=== PATIENT | male | born 1960 | race African-American/Black ===

== ENCOUNTER 2016-09-12 04:37 | Emergency (ER) | payer OTHER ==
[~2016-09-12] VITALS: Ht 170.2 cm; Wt 66.7 kg
[~2016-09-12 04:37] MED LIST: LEVE1000 PO; METO25TA PO; MULT1SGL58 PO; PHEN-1438 PO
[2016-09-12 04:49] VITALS: BP 105/65
--- NOTE | 2016-09-12 04:59 | NUR ---
Patient ambulated to bed 03.
--- NOTE | 2016-09-12 05:00 | NUR ---
PATIENT PRESENTS TO ED WITH C/O OF DIZZINESS AND BILAT WEAK LEGS X 1 DAY . PT STATES HE DID NOT FALL OR LOSE CONSCIOUSNESS .PT DENIES N/V/D;PT STATES HE HAS A HX OF STROKE 20 YEARS AGO, A SMALL STROKE 2010, AND A SEIZURE A MONTH A AGO WHILE AT HOME. PT STATES HE TAKES DILANTIN AND PHENOBARITAL FOR SEIZURE.PT SKIN IS PINK/WARM/DRY; AAOX4 WITH EVEN AND STEADY GAIT; LUNGS CLEAR BL; HR EVEN AND REGULAR; PT DENIES ANY FEVER, CP, SOB, OR COUGH AT THIS TIME; PATIENT STATES PAIN OF 9/10 AT THIS TIME; VSS; PATIENT POSITIONED FOR COMFORT; HOB ELEVATED; BEDRAILS UP X2; BED DOWN. ER MD MADE AWARE OF PT STATUS.
--- NOTE | 2016-09-12 05:14 | NUR ---
Dr. Quintana evaluating patient at bedside.
[2016-09-12] MEDS ORDERED: HYDROcodone/APAP 5/325 MG 1 TAB TAB PO ONE (05:20)
[2016-09-12] MEDS ORDERED: KETOROLAC 30 MG/ML VIAL IM ONE (05:20)
--- NOTE | 2016-09-12 05:49 | NUR ---
BROUGHT BLOOD TO LAB
[2016-09-12 06:11] LABS: ANION GAP 14.1 (8-16); CALCIUM 8.1 mg/dL (8.5-10.1); CARBON DIOXIDE 24.5 mmol/L (21-32); POTASSIUM 3.6 mmol/L (3.5-5.1)
[2016-09-12 06:43] VITALS: BP 111/69
--- NOTE | 2016-09-12 06:43 | NUR ---
Patient discharged with v/s stable. Written and verbal after care instructions given and explained. Patient alert, oriented and verbalized understanding of instructions. Ambulatory with steady gait. All questions addressed prior to discharge. ID band removed. Patient advised to follow up with PMD. Rx of NAPROSYN 500MG given. Patient educated on indication of medication including possible reaction and side effects. Opportunity to ask questions provided and answered.
== END 2016-09-12 06:43 | disposition home or self-care (01) ==
LOC: MED 04:37
PROC: 3E033GC Introduction of Other Therapeutic Substance into Peripheral Vein, Percutaneous Approach (ICD-10-PCS; principal; 2016-09-12)
DX: M79.1 Myalgia (principal); I10 Essential (primary) hypertension; R56.9 Unspecified convulsions; J44.9 Chronic obstructive pulmonary disease, unspecified; Z86.73 Personal history of transient ischemic attack (TIA), and cerebral infarction without residual deficits
CPT/HCPCS: 36415; 80048; 82550; 96372; 99284; J1885

== ENCOUNTER 2017-01-10 01:48 | Emergency (ER) | payer OTHER ==
[~2017-01-10] VITALS: Ht 167.6 cm; Wt 68.0 kg
[2017-01-10 01:57] VITALS: BP 111/72
--- NOTE | 2017-01-10 03:15 | NUR ---
PATIENT TO ER BED 5
--- NOTE | 2017-01-10 03:30 | NUR ---
Patient being evaluated by physician at bedside.
--- NOTE | 2017-01-10 04:15 | NUR ---
56Y/M PT. PRESENTS TO ED WITH C/O LT. FLANK PAIN X 5 DAYS. HX. STROKE, SEIZURE. AAO X4, AMBULATORY WITH UNSTEADY GAIT. LT. SIDE MILD WEAKNESS. RESPIRATION ROOM AIR, EVEN AND UNLABORED. SKIN WARM AND DRY. C/O LT. FLANK PAIN 510. VSS, ER MADE AWARE OF PT. STATUS.
[2017-01-10 04:57] LABS: HEMATOCRIT 37.5 % (36-52); HEMOGLOBIN 12.2 g/dL (12.0-18.0); MEAN CORPUSCULAR HEMOGLOBIN 33 pg (27-31); MEAN CORPUSCULAR HGB CONC 33 g/dL (33-37); MEAN CORPUSCULAR VOLUME 100 fL (80-94); PLATELET COUNT (AUTO) 187 K/uL (140-450); RED BLOOD CELL COUNT(AUTO) 3.74 MIL/uL (4.20-6.10); RED CELL DISTRIBUTION WIDTH 13.4 % (11.6-13.7); WHITE BLOOD COUNT (AUTO) 3.5 K/uL (4.8-10.8)
[2017-01-10 05:13] LABS: EOSINOPHILS % (MANUAL) 3 % (0-4); LYMPHOCYTES % (MANUAL) 40 % (20-46); MONOCYTES % (MANUAL) 6 % (5-12); NEUTROPHILS % (MANUAL) 51 (43-65)
[2017-01-10 05:17] LABS: ANION GAP 8.8 (8-16); CALCIUM 8.5 mg/dL (8.5-10.1); CARBON DIOXIDE 30.7 mmol/L (21-32); POTASSIUM 4.5 mmol/L (3.5-5.1)
[2017-01-10 05:22] LABS: ALBUMIN 3.7 g/dL (3.4-5.0); TOTAL BILIRUBIN 0.2 mg/dL (0.0-1.0); TOTAL PROTEIN, SERUM 7.9 g/dL (6.4-8.2)
[2017-01-10 06:09] LABS: APPEARANCE,URINE CLEAR (CLEAR); BILIRUBIN,URINE NEGATIVE (NEGATIVE); BLOOD, URINE NEGATIVE (NEGATIVE); COLOR,URINE YELLOW (YELLOW); LEUKOCYTE ESTERASE ,URINE NEGATIVE (NEGATIVE); NITRITE, URINE NEGATIVE (NEGATIVE); PROTEIN,URINE NEGATIVE (NEGATIVE); UGLUCOSE NEGATIVE (NEGATIVE); UROBILINOGEN,URINE 0.2 EU/dL (0.2 - 1)
[2017-01-10 06:12] VITALS: BP 100/70
--- NOTE | 2017-01-10 06:12 | NUR ---
Patient discharged with v/s stable. Written and verbal after care instructions given and explained. Patient alert, oriented and verbalized understanding of instructions. Ambulatory with to car. All questions addressed prior to discharge. ID band removed. Patient advised to follow up with PMD. Rx of CYCLOBENZAPRINE 10 MG, MOTRIN 800 MG given. Patient educated on indication of medication including possible reaction and side effects. Opportunity to ask questions provided and answered.
[2017-01-10 06:17] LABS: AMPHETAMINE, URINE NEG. ng/ml (NEG <=1000); BARBITURATE, URINE POS. ng/ml (NEG <=200); BENZODIAZEPINE, URINE NEG. ng/mL (NEG <=200); CANNABINOID, URINE NEG. ng/mL (NEG <=50); COCAINE, URINE NEG. ng/mL (NEG <=300); OPIATE, URINE NEG. ng/mL (NEG <=2000); PHENCYCLIDINE SCREEN,URINE NEG. ng/mL (NEG <=25)
== END 2017-01-10 06:12 | disposition home or self-care (01) ==
LOC: MED 01:48
DX: R10.9 Unspecified abdominal pain (principal); M62.838 Other muscle spasm; Z86.73 Personal history of transient ischemic attack (TIA), and cerebral infarction without residual deficits; I10 Essential (primary) hypertension; F17.200 Nicotine dependence, unspecified, uncomplicated
CPT/HCPCS: 36415; 70450; 80053; 80305; 81003; 82150; 83690; 84484; 85025; 93005; 99285

== ENCOUNTER 2017-02-17 22:37 | Emergency (ER) | payer OTHER ==
[~2017-02-17] VITALS: Ht 175.3 cm; Wt 65.8 kg
[2017-02-17 22:48] VITALS: BP 123/80
--- NOTE | 2017-02-17 23:12 | NUR ---
PT TAKEN TO BED 7
--- NOTE | 2017-02-17 23:31 | NUR ---
Dr. Porter evaluating patient at bedside.
[2017-02-17] MEDS ORDERED: KETOROLAC 30 MG/ML VIAL IVP ONE (23:45)
[2017-02-17] MEDS ORDERED: NACL 0.9% 1,000 ML IV ONE (23:45)
--- NOTE | 2017-02-17 23:48 | NUR ---
PT TAKEN TO CT
--- NOTE | 2017-02-18 00:02 | NUR ---
56Y/M PT. PRESENTS TO ED WITH C/O RT. PAIN AND NUMBNESS X 4 DAYS. PT. HX. STROKE. NO N/V/D NOR FEVER. AAO X4, AMBULATORY WITH W/C ASSISTED, GCS 15. RESPIRATIONS ROOM AIR, EVEN AND UNLABORED. SKIN WARM AND DRY. PAIN TO RT. SIDE 12/21. VSS, ER MADE AWARE OF PT. STATUS.
--- NOTE | 2017-02-18 00:06 | NUR ---
PT RETURN FROM CT
--- NOTE | 2017-02-18 00:08 | NUR ---
PHLEB AT BEDSIDE FOR LAB DRAWS
[2017-02-18 00:21] LABS: BASOPHILS # (AUTO) 0.2 K/uL (0.00-0.22); EOSINOPHILS # (AUTO) 0.2 K/uL (0-0.4); MEAN CORPUSCULAR HEMOGLOBIN 33 pg (27-31); NEUTROPHILS # (AUTO) 2.6 K/uL (1.8-7.7)
[2017-02-18 00:25] LABS: BASOPHILS % (AUTO) 3.5 % (0.0-2.0); EOSINOPHILS % (AUTO) 3.5 % (0.0-4.0); HEMATOCRIT 38.9 % (36-52); HEMOGLOBIN 13.2 g/dL (12.0-18.0); LYMPHOCYTES # (AUTO) 1.6 K/uL (2.0-11.5); LYMPHOCYTES % (AUTO) 31.3 % (20.5-51.1); MEAN CORPUSCULAR HGB CONC 34 g/dL (33-37); MEAN CORPUSCULAR VOLUME 99 fL (80-94); MONOCYTES # (AUTO) 0.5 K/uL (0.8-1.0); NEUTROPHILS % (AUTO) 51.7 % (42.2-75.2); PLATELET COUNT (AUTO) 212 K/uL (140-450); RED BLOOD CELL COUNT(AUTO) 3.94 MIL/uL (4.20-6.10); RED CELL DISTRIBUTION WIDTH 13.3 % (11.6-13.7); WHITE BLOOD COUNT (AUTO) 5.1 K/uL (4.8-10.8)
[2017-02-18 00:31] LABS: ANION GAP 15.1 (8-16); CARBON DIOXIDE 24.5 mmol/L (21-32); CREATININE 1.1 mg/dL (0.7-1.3); POTASSIUM 3.6 mmol/L (3.5-5.1)
[2017-02-18 00:37] LABS: ALBUMIN 3.9 g/dL (3.4-5.0); TOTAL BILIRUBIN 0.2 mg/dL (0.0-1.0)
[2017-02-18 00:42] LABS: PROTHROMBIN TIME 9.9 secs (10.8-13.4)
--- NOTE | 2017-02-18 01:15 | NUR ---
Patient discharged with v/s stable. Written and verbal after care instructions given and explained. Patient alert, oriented and verbalized understanding of instructions. Ambulatory with steady gait. All questions addressed prior to discharge. ID band removed. Patient advised to follow up with PMD. Rx of MOTRIN 800 MG, TRAMADOL 50 MG given. Patient educated on indication of medication including possible reaction and side effects. Opportunity to ask questions provided and answered.
[2017-02-18 01:32] VITALS: BP 119/79
== END 2017-02-18 01:15 | disposition home or self-care (01) ==
LOC: MED 22:37
DX: M19.041 Primary osteoarthritis, right hand (principal); Z86.73 Personal history of transient ischemic attack (TIA), and cerebral infarction without residual deficits; I10 Essential (primary) hypertension
CPT/HCPCS: 36415; 70450; 72125; 80053; 85025; 85610; 85730; 96361; 96374; 99285; J1885; J7030

== ENCOUNTER 2017-04-18 19:53 | Emergency (ER) | payer OTHER ==
[~2017-04-18] VITALS: Ht 167.6 cm; Wt 63.5 kg
[2017-04-18 20:02] VITALS: BP 150/90
--- NOTE | 2017-04-18 20:23 | NUR ---
TO ER BED4
--- NOTE | 2017-04-18 20:25 | NUR ---
PATIENT IS A 57 Y/O MALE WHO PRESENTS TO THE ED C/O TOOTHACHE. PT STATES, "MY TEETH ON THE LEFT SIDE HAS BEEN HURTING." PT REPORTS 9/10 ACHING PAIN ON THE LEFT SIDE OF THE MOUTH THAT RADIATES TO THE NECK. PT DENIES CP, SOB, N/V/D. PT AAOX4, RR EVEN/UNLABORED. PT REPOSITIONED FOR COMFORT, BED IN LOWEST POSITION. ER MD DR. YODER NOTIFIED. WILL CONTINUE TO MONITOR.
[2017-04-18] MEDS ORDERED: KETOROLAC 60 MG/2 ML VIAL IM ONE (21:20)
[2017-04-18 21:39] VITALS: BP 141/87
--- NOTE | 2017-04-18 21:39 | NUR ---
Patient discharged with v/s stable. Written and verbal after care instructions given and explained. Patient alert, oriented and verbalized understanding of instructions. Ambulatory with steady gait. All questions addressed prior to discharge. ID band removed. Patient advised to follow up with PMD. Rx of AMOXICILLIN 500MG given. Patient educated on indication of medication including possible reaction and side effects. Opportunity to ask questions provided and answered.
== END 2017-04-18 21:39 | disposition home or self-care (01) ==
LOC: MED 19:53
DX: K08.89 Other specified disorders of teeth and supporting structures (principal); I10 Essential (primary) hypertension; F17.210 Nicotine dependence, cigarettes, uncomplicated; Z86.73 Personal history of transient ischemic attack (TIA), and cerebral infarction without residual deficits; Z79.899 Other long term (current) drug therapy
CPT/HCPCS: 96372; 99283; J1885

== ENCOUNTER 2017-07-04 00:48 | Emergency (ER) | payer OTHER ==
[~2017-07-04] VITALS: Ht 172.7 cm; Wt 73.1 kg
[2017-07-04 01:00] VITALS: BP 125/87
--- NOTE | 2017-07-04 01:05 | NUR ---
PATIENT IS A 56 Y/O MALE WHO PRESENTS TO THE ED C/O COUGH. PT STATES, "I HAVE BEEN HAVING A COUGH AND MY BODY HURTS." PT REPORTS 8/10 ACHING RIGHT ARM PAIN THAT DOES NOT RADIATE. PT DENIES CP, SOB, N/V/D. PT AAOX4, RR EVEN/UNLABORED, LUNG SOUNDS CLEAR BL. PT REPOSITIONED FOR COMFORT, PT SITTING CHAIR. EVERTON MAYFIELD NOTIFIED. WILL CONTINUE TO MONITOR. Addendum: 07/04/17 at 0110 by MEDDCV PATIENT IS A 56 Y/O MALE WHO PRESENTS TO THE ED C/O COUGH. PT STATES, "I HAVE BEEN HAVING A COUGH AND MY BODY HURTS." PT REPORTS 8/10 ACHING RIGHT ARM PAIN THAT DOES NOT RADIATE. PT DENIES CP, SOB, REPORTS DIARRHEA DENIES N/V. PT AAOX4, RR EVEN/UNLABORED, LUNG SOUNDS CLEAR BL. PT REPOSITIONED FOR COMFORT, PT SITTING CHAIR. EVERTON MAYFIELD NOTIFIED. WILL CONTINUE TO MONITOR.
[2017-07-04] MEDS ORDERED: HYDROcodone/APAP 10/325 MG 1 TAB TAB PO ONE (01:25)
[2017-07-04] MEDS ORDERED: METHOCARBAMOL 500 MG TAB PO SCH (01:25)
--- NOTE | 2017-07-04 01:48 | NUR ---
LAB AT BEDSIDE-BLOOD SENT
[2017-07-04 01:58] LABS: MEAN CORPUSCULAR HEMOGLOBIN 33 pg (27-31); MEAN CORPUSCULAR HGB CONC 33 g/dL (33-37); MEAN CORPUSCULAR VOLUME 99 fL (80-94); PLATELET COUNT (AUTO) 187 K/uL (140-450); RED BLOOD CELL COUNT(AUTO) 3.92 MIL/uL (4.20-6.10); RED CELL DISTRIBUTION WIDTH 12.6 % (11.6-13.7); WHITE BLOOD COUNT (AUTO) 5.9 K/uL (4.8-10.8)
--- NOTE | 2017-07-04 02:08 | NUR ---
Patient appears to be resting comfortably in bed. Vital Signs within normal limits. Respirations even and unlabored.
[2017-07-04 02:13] LABS: EOSINOPHILS % (MANUAL) 5 % (0-4); LYMPHOCYTES % (MANUAL) 21 % (20-46); MONOCYTES % (MANUAL) 9 % (5-12)
[2017-07-04 02:14] LABS: ANION GAP 10.7 (8-16); CARBON DIOXIDE 27.6 mmol/L (21-32); POTASSIUM 4.3 mmol/L (3.5-5.1)
[2017-07-04 02:19] LABS: ALBUMIN 3.9 g/dL (3.4-5.0); TOTAL BILIRUBIN 0.1 mg/dL (0.0-1.0)
[2017-07-04 02:52] VITALS: BP 99/62
--- NOTE | 2017-07-04 02:52 | NUR ---
Patient discharged with v/s stable. Written and verbal after care instructions given and explained. Patient alert, oriented and verbalized understanding of instructions. Ambulatory with steady gait. All questions addressed prior to discharge. ID band removed. Patient advised to follow up with PMD. Rx of FLONASELUCHO given. Patient educated on indication of medication including possible reaction and side effects. Opportunity to ask questions provided and answered.
== END 2017-07-04 02:52 | disposition home or self-care (01) ==
LOC: MED 00:48
DX: G40.909 Epilepsy, unspecified, not intractable, without status epilepticus (principal); M25.511 Pain in right shoulder; J06.9 Acute upper respiratory infection, unspecified; I10 Essential (primary) hypertension; Z86.73 Personal history of transient ischemic attack (TIA), and cerebral infarction without residual deficits; Z79.899 Other long term (current) drug therapy
CPT/HCPCS: 36415; 71045; 73030; 80053; 84484; 85025; 93005; 99285

== ENCOUNTER 2017-11-28 21:56 | Emergency (ER) | payer OTHER ==
[~2017-11-28] VITALS: Ht 167.6 cm; Wt 65.8 kg
[2017-11-28 22:14] VITALS: BP 121/86
[2017-11-28] MEDS ORDERED: cefTRIAXone 250 MG in LIDOCAINE MPF 1% - **ER/OR** 0.9 ML IM ONE (22:55)
[2017-11-28] MEDS ORDERED: AZITHROMYCIN 250 MG TAB PO ONE (22:55)
[2017-11-28 23:45] VITALS: BP 115/73
[2017-12-01 06:19] LABS: CHLAMYDIA TRACHOMATIS AMP DNA Negative (Negative)
== END 2017-11-28 23:45 | disposition home or self-care (01) ==
LOC: MED 21:56
DX: A64 Unspecified sexually transmitted disease (principal); R30.0 Dysuria; I10 Essential (primary) hypertension; Z86.73 Personal history of transient ischemic attack (TIA), and cerebral infarction without residual deficits; Z79.899 Other long term (current) drug therapy
CPT/HCPCS: 36415; 81002; 87491; 96372; 99283; J0696; J2001

== ENCOUNTER 2018-06-23 06:00 | Emergency (ER) | payer OTHER ==
[~2018-06-23] VITALS: Ht 170.2 cm; Wt 68.0 kg
--- NOTE | 2018-06-23 06:05 | NUR ---
AMBULATED TO ER BED 2
[2018-06-23 06:09] VITALS: BP 111/82
--- NOTE | 2018-06-23 06:09 | NUR ---
57/M PRESENTS TO ED WITH FAMILY/FRIENDS, C/O INTERMITTENT HEADACHE, X2 MONTHS. PT DENIES N/V. PT REPORTS FALL LAST WEEK IN THE BATHROOM. PT REPORTS TAKING NORCO AND TYLENOL #3 WITH NO RELIEF. PT AOX4, GCS 15, PERRLA, MILDLY SLURRED SPEECH FROM PAST CVA, RR EVEN AND UNLABORED. HX CVA (2004), SEIZURES
[2018-06-23] MEDS ORDERED: PHEN100C3 PO (06:24)
[2018-06-23] MEDS ORDERED: LEVE750T3 PO (06:24)
[2018-06-23] MEDS ORDERED: FOLI1TAB90 PO (06:24)
[2018-06-23] MEDS ORDERED: GABA300C PO (06:24)
[2018-06-23] MEDS ORDERED: MORPHINE SULFATE 4 MG/ML SYR IM ONE (06:25)
[2018-06-23 06:55] VITALS: BP 111/82
--- NOTE | 2018-06-23 06:55 | NUR ---
Patient discharged with v/s stable. Written and verbal after care instructions given and explained. Patient verbalized understanding. Ambulatory with steady gait. All questions addressed prior to discharge. Advised to follow up with PMD.
== END 2018-06-23 06:55 | disposition home or self-care (01) ==
LOC: MED 06:00
DX: G43.909 Migraine, unspecified, not intractable, without status migrainosus (principal); I10 Essential (primary) hypertension; Z86.73 Personal history of transient ischemic attack (TIA), and cerebral infarction without residual deficits; Z79.899 Other long term (current) drug therapy
CPT/HCPCS: 96372; 99283; J2270

== ENCOUNTER 2018-12-26 02:25 | Emergency (ER) | payer OTHER ==
[~2018-12-26] VITALS: Ht 167.6 cm; Wt 68.0 kg
[~2018-12-26 02:25] MED LIST changes: +FOLI1TAB90 PO; +GABA300C PO; -LEVE1000 PO; +LEVE750T3 PO; +PHEN100C3 PO
[2018-12-26 02:29] VITALS: BP 120/84
--- NOTE | 2018-12-26 02:29 | NUR ---
TO BED # 08 AMBULATORY
--- NOTE | 2018-12-26 02:43 | NUR ---
58/M PRESENTS TO ED WITH FAMILY, C/O L UPPER TOOTH PAIN, X2 MONTHS S/P L UPPER MOLAR TOOTH EXTRACTION 2 MONTHS AGO. DENTAL HYGIENE NOTED WITH SEVERE TEETH CAVITIES. WENT TO DENTIST 3 DAYS AGO, WAS GIVEN RX ABX. PT DENIES FEVER/CHILLS, N/V. PT AWAKE AND ALERT, SKIN NORMAL WARM AND DRY, RR EVEN AND UNLABORED. DENIES MED HX. RX ABX. OTC TYLENOL.
--- NOTE | 2018-12-26 02:59 | NUR ---
DR YODER AT BEDSIDE FOR MSE
[2018-12-26] MEDS ORDERED: MORPHINE SULFATE 4 MG/ML SYR IM ONE (03:05)
[2018-12-26 03:40] VITALS: BP 114/74
== END 2018-12-26 03:40 | disposition home or self-care (01) ==
LOC: MED 02:25
DX: K08.89 Other specified disorders of teeth and supporting structures (principal); I10 Essential (primary) hypertension; F17.200 Nicotine dependence, unspecified, uncomplicated; Z86.73 Personal history of transient ischemic attack (TIA), and cerebral infarction without residual deficits; Z79.899 Other long term (current) drug therapy
CPT/HCPCS: 96372; 99283; J2270

== ENCOUNTER 2019-01-01 20:38 | Emergency (ER) | payer OTHER ==
[~2019-01-01] VITALS: Ht 167.6 cm; Wt 65.8 kg
[2019-01-01 21:13] VITALS: BP 105/67
--- NOTE | 2019-01-01 21:46 | NUR ---
PT AMBULATED TO ER BED 08
--- NOTE | 2019-01-01 21:50 | NUR ---
PT CAME IN C/O OF LEFT UPPER JAW PAIN X2 DAYS. PER PT DENTIST PULLED OUT WOODEN TOOTH 2 DAYS AGO. PT WAS PRESCRIBED TYLENOL AND ANTIBIOTICS, WITH UNRELIEVED PAIN. PAIN LEVEL 10/10. PAIN IS ACHING, AND RADIATES TO LEFT EYE AND HAS A HEADACHE. MED HX: SEIZURES. SAFETY MEASURES IN PLACE. WAITING FOR ERMD TO EVALUATE PT.
--- NOTE | 2019-01-01 21:50 | NUR ---
SEIZURE PRECAUTIONS IMPLEMENTED. BED IN LOWEST POSITION, BEDRAILS UP X2, PADDED SIDE RAILS IN PLACE.
[2019-01-01] MEDS ORDERED: KETOROLAC 60 MG/2 ML VIAL IM ONE (23:00)
[2019-01-01] MEDS ORDERED: MORPHINE SULFATE 4 MG/ML SYR IM ONE (23:20)
[2019-01-01 23:57] VITALS: BP 105/67
--- NOTE | 2019-01-01 23:57 | NUR ---
Patient discharged with v/s stable. Written and verbal after care instructions given and explained. Patient alert, oriented and verbalized understanding of instructions. Ambulatory with steady gait. All questions addressed prior to discharge. ID band removed. Patient advised to follow up with PMD. Opportunity to ask questions provided and answered.
== END 2019-01-01 23:57 | disposition home or self-care (01) ==
LOC: MED 20:38
DX: K08.89 Other specified disorders of teeth and supporting structures (principal); I10 Essential (primary) hypertension; F17.200 Nicotine dependence, unspecified, uncomplicated; Z86.73 Personal history of transient ischemic attack (TIA), and cerebral infarction without residual deficits; Z98.890 Other specified postprocedural states; Z79.899 Other long term (current) drug therapy
CPT/HCPCS: 96372; 99283; J1885; J2270; 81002

== ENCOUNTER 2019-01-08 02:17 | Emergency (ER) | payer OTHER ==
[~2019-01-08] VITALS: Ht 167.6 cm; Wt 72.6 kg
[2019-01-08 02:37] VITALS: BP 100/65
--- NOTE | 2019-01-08 02:37 | NUR ---
TO BED # 11 AMBULATORY
--- NOTE | 2019-01-08 02:40 | NUR ---
58 Y/O MALE BIB FATHER, PRESENTS TO ED C/O LEFT SIDE TOOTHACHE 03/23. PT STATES HE HAD HIS LEFT SIDE WISDOM TOOH EXTRACTED TWO MONTHS AGO AND A DENTAL PROCEDURE DONE ONE MONTH AGO. PT STATES TOOTHACHE WAS MANAGEABLE UNTIL THIS MORNING. PT WAS UNABLE TO ALLEVIATE PAIN WITH RX T3. STATES PAIN WAS KEEPING HIM UP ALL MORNING. PT HAS HX OF CVA AT 2004, HTN, AND SEIZURE. LAST SEIZURE WAS "A COUPLE OF YEARS AGO" PER PT. PT VSS. DR MCQUEEN AWARE. WILL CONTINUE TO MONITOR.
--- NOTE | 2019-01-08 02:42 | NUR ---
Dr. Cardona examining patient.
[2019-01-08] MEDS ORDERED: KETOROLAC 60 MG/2 ML VIAL IM ONE (02:50)
[2019-01-08 03:15] VITALS: BP 113/62
--- NOTE | 2019-01-08 03:15 | NUR ---
PT DISCHARGE WITH PAPERWORK. RX ULTRAM FOR PAIN MANAGEMENT. EDUCATED PT REGARDING MEDICATION AND SIDE EFFECTS OR OTHER NON PHARMACOLOGICAL PAIN MANAGEMENT TECHNIQUE. EDUCATED PT REGARDING DISCHARGE DIAGNOSIS. PT VERBALIZED UNDERSTANDING OF TEACHING. PT VSS. TOLD PT TO FOLLOW UP WITH DENTIST/PCP AND WHEN TO RETURN TO ED. ALL QUESTIONS ANSWERED.
== END 2019-01-08 03:15 | disposition home or self-care (01) ==
LOC: MED 02:17
DX: K08.89 Other specified disorders of teeth and supporting structures (principal); I10 Essential (primary) hypertension; Z86.73 Personal history of transient ischemic attack (TIA), and cerebral infarction without residual deficits; Z79.899 Other long term (current) drug therapy
CPT/HCPCS: 96372; 99283; J1885

== ENCOUNTER 2019-01-18 02:20 | Emergency (ER) | payer OTHER ==
[~2019-01-18] VITALS: Ht 167.6 cm; Wt 68.0 kg
[2019-01-18 02:25] VITALS: BP 108/66
--- NOTE | 2019-01-18 02:25 | NUR ---
TO BED # 09 AMBULATORY
--- NOTE | 2019-01-18 02:28 | NUR ---
CAME IN WITH C/O OF HEADACHE FOR 6 MONTHS, AND GETTING WORST.NO TRAUMA NOR INJURY
--- NOTE | 2019-01-18 02:48 | NUR ---
Dr. Rhoades evaluating patient at bedside.
[2019-01-18] MEDS ORDERED: IBUPROFEN 600 MG TAB PO ONE (02:50)
[2019-01-18] MEDS ORDERED: SUMAtriptan 25 MG TAB PO ONE (02:50)
[2019-01-18 04:25] VITALS: BP 114/70
--- NOTE | 2019-01-18 04:25 | NUR ---
Patient discharged with v/s stable. Written and verbal after care instructions given and explained. Patient alert, oriented and verbalized understanding of instructions. Ambulatory with steady gait. All questions addressed prior to discharge. ID band removed. Patient advised to follow up with PMD. Rx of IBUPROFEN 600MG, IMITREX 25MG given. Patient educated on indication of medication including possible reaction and side effects. Opportunity to ask questions provided and answered.
== END 2019-01-18 04:25 | disposition home or self-care (01) ==
LOC: MED 02:20
DX: G43.909 Migraine, unspecified, not intractable, without status migrainosus (principal); I10 Essential (primary) hypertension; Z86.73 Personal history of transient ischemic attack (TIA), and cerebral infarction without residual deficits; Z79.899 Other long term (current) drug therapy
CPT/HCPCS: 99283

== ENCOUNTER 2019-01-26 04:10 | Emergency (ER) | payer OTHER ==
[~2019-01-26] VITALS: Ht 167.6 cm; Wt 65.0 kg
[2019-01-26 04:10] VITALS: BP 106/63
--- NOTE | 2019-01-26 04:13 | NUR ---
PT TAKEN TO BED 11
--- NOTE | 2019-01-26 04:15 | NUR ---
58 YO MALE COMES TO ED FOR C/O HEADACHE.PT AAOX3 PT STATES 5/10 ACHINESS. DENIES BLURRED VISION, DIZZINESS. STRONG EQUAL STRENGTH BILATERALLY. DENIES CP/SOB. DENIES N/V/D. GURNEY LOCKED IN LOWEST POSITION. CALL LIGHT WITHIN REACH. HX: HEADACHE, EPILEPSY ALLERGY: DENIES
--- NOTE | 2019-01-26 04:22 | NUR ---
Dr. Perez examining patient.
[2019-01-26] MEDS ORDERED: KETOROLAC 60 MG/2 ML VIAL IM ONE (04:30)
--- NOTE | 2019-01-26 05:15 | NUR ---
Patient discharged with v/s stable. Written and verbal after care instructions given and explained. Patient alert, oriented and verbalized understanding of instructions. Ambulatory with steady gait. All questions addressed prior to discharge. ID band removed. Patient advised to follow up with PMD. Rx of IMITREX given. Patient educated on indication of medication including possible reaction and side effects. Opportunity to ask questions provided and answered.
[2019-01-26 05:19] VITALS: BP 105/62
== END 2019-01-26 05:15 | disposition home or self-care (01) ==
LOC: MED 04:10
DX: R51 Headache (principal); Z79.899 Other long term (current) drug therapy; I10 Essential (primary) hypertension; Z86.73 Personal history of transient ischemic attack (TIA), and cerebral infarction without residual deficits; Z86.69 Personal history of other diseases of the nervous system and sense organs
CPT/HCPCS: 96372; 99283; J1885

== ENCOUNTER 2019-02-22 21:59 | Emergency (ER) | payer OTHER ==
[~2019-02-22] VITALS: Ht 170.2 cm; Wt 63.5 kg
[2019-02-22 22:05] VITALS: BP 99/68
--- NOTE | 2019-02-22 22:07 | NUR ---
PT AMBULATED TO LOBBY. ACCOMPANIED BY FRIEND.
--- NOTE | 2019-02-22 23:06 | NUR ---
PT AMBULATED TO ROOM 01 WITH FRIEND.
--- NOTE | 2019-02-22 23:28 | NUR ---
58 Y/O MALE BIB ROOMMATE STATING THAT PT. HAS SEVERE JAW/GUM PAIN RADIATING TO THE BACK OF HEAD. PATIENT'S PAIN IS AT A PAIN LEVEL OF 10/10 "NAGGING"PAIN. HE UNABLE TO EAT BECAUSE OF THE PAIN. HE HAD HIS WISDOM TEETH PULLED THREE MONTHS AGO AND HAS BEEN CONSISTEN. PATIENT'S VITAL SIGNS IS SPO2: 100%; HR:77: RR 13; AND B/P: 90/62 LYING DOWN. PRIOR TO COMING TO THE HOSPITAL, PATIENT TOOK A NORCO FOR THE PAIN. HE ALSO C/O DIARRHEA SINCE THIS MORNING. DENIES N/V. A/O X3 TO PERSON, PLACE AND TIME AND FOLLOWS COMMANDS. PERRLA+2. ERMD MADE AWARE OF STATUS. ROAD CONTRACTOR PLACED. SIDERAILS X2. ROOMMATE AT BEDSIDE. PMH: EPILEPSY RX: PHENOBARBITAL NKDA.
--- NOTE | 2019-02-22 23:50 | NUR ---
Dr. Porter examining patient.
[2019-02-23] MEDS ORDERED: NACL 0.9% 1,000 ML IV ONE
[2019-02-23 00:19] LABS: BASOPHILS # (AUTO) 0.1 K/uL (0.00-0.22); BASOPHILS % (AUTO) 1.2 % (0.0-2.0); EOSINOPHILS # (AUTO) 0.5 K/uL (0-0.4); EOSINOPHILS % (AUTO) 9.5 % (0.0-4.0); HEMOGLOBIN 12.8 g/dL (12.0-18.0); LYMPHOCYTES # (AUTO) 1.2 K/uL (2.0-11.5); LYMPHOCYTES % (AUTO) 21.7 % (20.5-51.1); MEAN CORPUSCULAR HEMOGLOBIN 33 pg (27-31); MEAN CORPUSCULAR HGB CONC 34 g/dL (33-37); MEAN CORPUSCULAR VOLUME 96.5 fL (80-94); MONOCYTES # (AUTO) 0.5 K/uL (0.8-1.0); MONOCYTES % (AUTO) 8.2 % (1.7-9.3); NEUTROPHILS # (AUTO) 3.4 K/uL (1.8-7.7); NEUTROPHILS % (AUTO) 59.4 % (42.2-75.2); PLATELET COUNT (AUTO) 210 K/uL (140-450); RED BLOOD CELL COUNT(AUTO) 3.94 MIL/uL (4.20-6.10); RED CELL DISTRIBUTION WIDTH 14.2 % (11.6-13.7); WHITE BLOOD COUNT (AUTO) 5.7 K/uL (4.8-10.8)
[2019-02-23 00:29] LABS: ANION GAP 14.3 (8-16); CARBON DIOXIDE 25.3 mmol/L (21-32); CHLORIDE 104 mmol/L (98-107); CREATININE 1.1 mg/dL (0.7-1.3); GFR ARICAN-AMERICAN 88 mL/min (>90); GLUCOSE 92 mg/dL (74-106); POTASSIUM 4.6 mmol/L (3.5-5.1); SODIUM SERUM 139 mmol/L (136-145); UREA NITROGEN, BLOOD 20 mg/dL (7-18)
[2019-02-23 00:36] LABS: ALBUMIN 3.7 g/dL (3.4-5.0); ASPARTATE AMINOTRANSFERASE 35 U/L (15-37); SALICYLATE 5.3 mg/dL (2.8-20.0); TOTAL BILIRUBIN 0.2 mg/dL (0.0-1.0)
[2019-02-23 00:37] LABS: ACETAMINOPHEN < 0.5 ug/ml (10-30)
[2019-02-23 02:02] LABS: BARBITURATE, URINE POS. ng/ml (NEG <=200); BENZODIAZEPINE, URINE POS. ng/mL (NEG <=200); CANNABINOID, URINE NEG. ng/mL (NEG <=50); COCAINE, URINE NEG. ng/mL (NEG <=300); OPIATE, URINE NEG. ng/mL (NEG <=2000); PHENCYCLIDINE SCREEN,URINE NEG. ng/mL (NEG <=25)
--- NOTE | 2019-02-23 02:45 | NUR ---
Patient discharged with v/s stable. Written and verbal after care instructions given and explained. Patient alert, oriented and verbalized understanding of instructions. Wheel Chair Assisted with to car. All questions addressed prior to discharge. ID band removed. Patient advised to follow up with PMD. Opportunity to ask questions provided and answered. PT STATED THAT PAIN LEVEL IS 0/10 PRIOR TO D/C
[2019-02-23 02:50] VITALS: BP 100/67
== END 2019-02-23 02:45 | disposition home or self-care (01) ==
LOC: MED 21:59
DX: G43.909 Migraine, unspecified, not intractable, without status migrainosus (principal); F15.90 Other stimulant use, unspecified, uncomplicated
CPT/HCPCS: 36415; 70450; 80053; 80305; 85025; 93005; 99284; G0480; G0482; J7030

== ENCOUNTER 2019-07-28 09:33 | Emergency (ER) | payer OTHER ==
[~2019-07-28] VITALS: Ht 170.2 cm; Wt 72.6 kg
[2019-07-28 09:41] VITALS: BP 101/74
--- NOTE | 2019-07-28 09:47 | NUR ---
PATIENT AMBULATED WITH STEADY GAIT TO BED 4.
--- NOTE | 2019-07-28 09:50 | NUR ---
58 Y/O M C/C BILATERAL FOOT PAIN X 7 MONTHS BUT HAS BEEN GETTING PROGRESSIVELY WORSE. PAIN 9/10, ACHY FEELING. CMS/ROM WDL. NOT TAKEN OTC RX. WILL SEE PCP IN AUGUST. PT NKA. HX SEIZURES,STROKE (20 YEARS AGO). RX FOR SZ. NO N/V/D. SIDE RAIL X1. FAMILY AT BEDSIDE.
--- NOTE | 2019-07-28 09:53 | NUR ---
ERMD AT BEDSIDE
[2019-07-28] MEDS ORDERED: ACETAMINOPHEN 325 MG TAB PO ONE (10:05)
[2019-07-28] MEDS ORDERED: IBUPROFEN 600 MG TAB PO ONE (10:05)
[2019-07-28 10:22] VITALS: BP 101/74
== END 2019-07-28 10:22 | disposition home or self-care (01) ==
LOC: MED 09:33
DX: M79.672 Pain in left foot (principal); M79.671 Pain in right foot; I10 Essential (primary) hypertension; Z86.73 Personal history of transient ischemic attack (TIA), and cerebral infarction without residual deficits; Z79.899 Other long term (current) drug therapy
CPT/HCPCS: 99283